=== PATIENT | male | born 1965 | race Caucasian/White ===

== ENCOUNTER → 2018-02-19 16:36 | Outpatient (CLI) | payer BC ==
[2018-02-19 17:21] LABS: CREATININE - SERUM 1.7 mg/dL (0.6-1.3)
== END | disposition home or self-care (01) ==
LOC: D.LAB 16:15 → D.CT 16:30 → D.LAB 16:36
PROVIDERS: Nurse Practitioner Family
DX: R10.9 Unspecified abdominal pain (principal)